=== PATIENT | male | born 2000 | race Caucasian/White ===

== ENCOUNTER 2019-11-10 17:10 | Emergency (ER) | payer BC, OTHER ==
[2019-11-10 17:30] VITALS: RESP 18; TEMP 97.6
--- NOTE | 2019-11-10 18:24 | XR ---
EXAMINATION TYPE: XR shoulder complete RT DATE OF EXAM: 11/10/2019 COMPARISON: NONE HISTORY: Shoulder pain TECHNIQUE: 3 views FINDINGS: I see no fracture nor dislocation. Joint spaces are normal. There are no pathologic calcifi cations. IMPRESSION: Negative right shoulder exam.
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
[2019-11-10 19:04] VITALS: BP 116/71; PULSE 67
== END 2019-11-10 19:04 | disposition home or self-care (01) ==
LOC: EC 17:10
DX: S49.91XA Unspecified injury of right shoulder and upper arm, initial encounter (principal); J02.0 Streptococcal pharyngitis; V86.96XA Unspecified occupant of dirt bike or motor/cross bike injured in nontraffic accident, initial encounter; Y92.410 Unspecified street and highway as the place of occurrence of the external cause
CPT/HCPCS: 99283

== ENCOUNTER 2024-08-31 10:08 | Day surgery (SDC) | payer OTHER ==
[2024-08-31] MEDS: IV FLUID CONTINUATION 1,000 ML IV ONE (10:21)
[2024-08-31 10:38] VITALS: TEMP 97.3
[2024-08-31] MEDS: LACTATED RINGERS 1,000 ML IV SCH (10:41)
[2024-08-31] MEDS ORDERED: fentaNYL (PF) 50 MCG/ML 2 ML AMP ONE (11:49)
[2024-08-31] MEDS ORDERED: LIDOCAINE 2% (PF) 20 MG/ML 5 ML VIAL ONE (11:49)
[2024-08-31] MEDS ORDERED: PROPOFOL 10 MG/ML 20 ML VIAL IV ONE (11:49)
--- NOTE | 2024-08-31 11:58 | P.PCN ---
Date of Procedure: 08/31/24 Procedure(s) Performed: BRIEF HISTORY: Patient is a 24-year-old, pleasant, white male scheduled for an upper endoscopy for evaluation intermittent solid food dysphagia solids for the last 1 year duration. Symptoms happens almost on a daily basis PROCEDURE PERFORMED: Esophagogastroduodenoscopy with biopsy and dilation. PREOPERATIVE DIAGNOSIS: Intermittent solid food dysphagia of 1 year duration. IV sedation per anesthesia. PROCEDURE: After informed consent was obtained, the patient was brought into the endoscopy unit. IV sedation was administered by Anesthesia under continuous monitoring. Initially the Olympus GIF-140 video endoscope was inserted into the mouth. Esophagus intubated without any difficulty. It was gradually advanced into the stomach and duodenum and carefully examined. The bulb and the second part of the duodenum appeared normal. The scope at this time was withdrawn to the stomach, adequately insufflated with air, and upon careful examination, mucosa of the antrum, body, cardia and the fundus appeared normal. The scope was then withdrawn into the esophagus. Small hiatal hernia noted. The GE junction was located at 43 cm from the incisors. There was a distal esophageal stricture identified and this was dilated using 15 mm TTS balloon for 30 seconds. There was brisk oozing and a mucosal tear noted at the site of dilation and hence further dilation was not performed. The mucosa in the mid and distal esophagus revealed thickened folds with longitudinal ridges and furrows all suspicious for eosinophilic esophagitis and multiple biopsies were done from this area. The proximal cervical esophagus appeared normal and the patient tolerated the procedure well. IMPRESSION: 1. Distal esophageal stricture status post balloon dilation using 50 mm TTS balloon for 30 seconds. 2. Small hiatal hernia 3. Thickened mid and distal esophageal folds with longitudinal ridges and furrows suspicious for eosinophilic esophagitis status post multiple biopsies. RECOMMENDATIONS: The findings of this examination were discussed with the patient as well as his family. He was advised to be on clear liquids for 2 hours. Follow-up with the biopsy results continue with omeprazole 20 mg daily. Follow-up in the office in 2 weeks..
[2024-08-31 12:04] VITALS: RESP 16
[2024-08-31 12:23] VITALS: BP 108/76; PULSE 75
== END 2024-08-31 12:39 | disposition home or self-care (01) ==
LOC: ORWHC2ENDO 10:08
PROVIDERS: ATTEND Internal Medicine Gastroenterology
DX: D72.10 Eosinophilia, unspecified (principal); K44.9 Diaphragmatic hernia without obstruction or gangrene; K22.2 Esophageal obstruction; F32.A Depression, unspecified; F41.9 Anxiety disorder, unspecified; K21.9 Gastro-esophageal reflux disease without esophagitis; Z79.899 Other long term (current) drug therapy
CPT/HCPCS: 88305; 43239; 43249; J3010; J2704; J2003; C1726